=== PATIENT | female | born 1935 | race Caucasian/White ===

== ENCOUNTER 2018-09-13 17:39 | Inpatient (IN) | payer MEDICARE, OTHER ==
[2018-09-13 18:25] LABS: ADD MAN DIFF? NO
[2018-09-13 18:27] LABS: BASOPHIL # 0.1 10^3/ul (0.0-0.1); BASOPHILS % 0.6 % (0.0-2.0); EOSINOPHILS # 0.8 10^3/ul (0.0-0.5); HEMATOCRIT 45.6 % (37.0-47.0); HEMOGLOBIN 14.5 g/dl (12.0-16.0); LYMPHOCYTES # 1.5 10^3/ul (0.8-2.9); MEAN CORPUSCULAR HEMOGLOBIN 28.5 pg (29.0-33.0); MEAN CORPUSCULAR HGB CONC 31.8 g/dl (32.0-37.0); MEAN CORPUSCULAR VOLUME 89.6 fl (82.0-101.0); MEAN PLATELET VOLUME 9.6 fl (7.4-10.4); MONOCYTES % 8.8 % (0.0-11.0); NEUTROPHILS % 69.9 % (39.0-77.0); PLATELET COUNT 357 10^3/UL (140-415); RED BLOOD COUNT 5.09 10^6/ul (4.20-5.40); RED CELL DISTRIBUTION WIDTH 13.2 % (11.5-14.5)
[2018-09-13 18:27] LABS: WHITE BLOOD COUNT 11.5 10^3/ul (4.8-10.8)
[2018-09-13] MEDS: SOD CHLORIDE 0.9% 1,000 ML IV ×3 (18:34→23:32)
[2018-09-13] MEDS: CEFEPIME 2GM/50 ML (PMX) 50 ML IVPB (18:34)
[2018-09-13 18:45] LABS: INR 0.98; PROTIME 13.1 Sec (11.9-14.9)
[2018-09-13 18:46] LABS: PARTIAL THROMBOPLASTIN TIME 30.9 Sec (23.0-35.0)
[2018-09-13 18:48] LABS: ALANINE AMINOTRANSFERASE 10 IU/L (13-69); ALBUMIN 3.3 g/dl (3.3-4.9); ALBUMIN/GLOBULIN RATIO 0.94; ALKALINE PHOSPHATASE 85 IU/L (42-121); ANION GAP 7 (5-13); ASPARTATE AMINO TRANSFERASE 18 IU/L (15-46); BILIRUBIN,INDIRECT 0.8 mg/dl (0-1.1); BILIRUBIN,TOTAL 0.8 mg/dl (0.2-1.3); BLOOD UREA NITROGEN 13 mg/dl (7-20); CALCIUM 9.4 mg/dl (8.4-10.2); CARBON DIOXIDE 32 mmol/L (21-31); CHLORIDE 102 mmol/L (97-110); CREATININE 0.74 mg/dl (0.44-1.00); GLUCOSE 113 mg/dl (70-220); POTASSIUM 3.8 mmol/L (3.5-5.1); SODIUM 141 mmol/L (135-144); TOTAL PROTEIN 6.8 g/dl (6.1-8.1)
[2018-09-13 18:59] LABS: TROPONIN-I < 0.012 ng/ml (0.000-0.120)
[2018-09-13] MEDS: VANCOMYCIN 1 GM (PMX) 250 ML IVPB (19:53)
[2018-09-13 20:29] LABS: ADD UMIC YES; UR ASCORBIC ACID NEGATIVE (NEGATIVE); UR BACTERIA FEW /HPF (NONE SEEN); UR BILIRUBIN (Dip) NEGATIVE (NEGATIVE); UR BLOOD (Dip) 1+ mg/dL (NEGATIVE); UR CLARITY CLEAR (CLEAR); UR COLOR YELLOW (YELLOW); UR GLUCOSE (Dip) NEGATIVE (NEGATIVE); UR KETONES (Dip) TRACE mg/dL (NEGATIVE); UR LEUKOCYTE ESTERASE (Dip) 1+ Leu/ul (NEGATIVE); UR NITRITE (Dip) POSITIVE (NEGATIVE); UR RBC 0 /HPF (0-5); UR SPECIFIC GRAVITY (Dip) 1.012 (1.003-1.030); UR TOTAL PROTEIN (Dip) NEGATIVE (NEGATIVE); UR UROBILINOGEN (Dip) NEGATIVE (NEGATIVE); UR WBC 13 /HPF (0-5)
[2018-09-13] MEDS ORDERED: ONDANSETRON 4 MG INJ IV ×2 (21:30→22:00)
[2018-09-13] MEDS ORDERED: ACETAMINOPHEN 325 MG TAB PO ×2 (21:30→22:00)
[2018-09-13] MEDS ORDERED: VANCOMYCIN IV PER PHARMACY XX (22:00)
[2018-09-13] MEDS ORDERED: BISACODYL (EC) 5 MG TAB PO (22:00)
[2018-09-13] MEDS ORDERED: DOCUSATE SODIUM 100 MG CAP PO (22:00)
[2018-09-13] MEDS ORDERED: NACL 0.9% 3 ML SYG IV (22:00)
[2018-09-14 06:26] LABS: ADD MAN DIFF? NO
[2018-09-14 06:32] LABS: WHITE BLOOD COUNT 8.4 10^3/ul (4.8-10.8)
[2018-09-14 06:32] LABS: BASOPHIL # 0.1 10^3/ul (0.0-0.1); BASOPHILS % 0.7 % (0.0-2.0); EOSINOPHILS # 0.7 10^3/ul (0.0-0.5); EOSINOPHILS % 8.5 % (0.0-7.0); HEMATOCRIT 44.9 % (37.0-47.0); HEMOGLOBIN 13.9 g/dl (12.0-16.0); LYMPHOCYTES # 1.4 10^3/ul (0.8-2.9); LYMPHOCYTES % 16.7 % (15.0-51.0); MEAN CORPUSCULAR HEMOGLOBIN 28.3 pg (29.0-33.0); MEAN CORPUSCULAR VOLUME 91.3 fl (82.0-101.0); MEAN PLATELET VOLUME 9.7 fl (7.4-10.4); MONOCYTE # 0.9 10^3/ul (0.3-0.9); MONOCYTES % 10.1 % (0.0-11.0); NEUTROPHIL # 5.3 10^3/ul (1.6-7.5); NEUTROPHILS % 63.3 % (39.0-77.0); PLATELET COUNT 326 10^3/UL (140-415); RED BLOOD COUNT 4.92 10^6/ul (4.20-5.40); RED CELL DISTRIBUTION WIDTH 13.5 % (11.5-14.5)
[2018-09-14 07:14] LABS: ALANINE AMINOTRANSFERASE 13 IU/L (13-69); ALBUMIN 2.9 g/dl (3.3-4.9); ALBUMIN/GLOBULIN RATIO 0.96; ALKALINE PHOSPHATASE 72 IU/L (42-121); ANION GAP 6 (5-13); ASPARTATE AMINO TRANSFERASE 17 IU/L (15-46); BILIRUBIN,INDIRECT 0.7 mg/dl (0-1.1); BILIRUBIN,TOTAL 0.7 mg/dl (0.2-1.3); BLOOD UREA NITROGEN 10 mg/dl (7-20); CALCIUM 8.7 mg/dl (8.4-10.2); CARBON DIOXIDE 29 mmol/L (21-31); CHLORIDE 107 mmol/L (97-110); CHOL/HDL RATIO 4.2 RATIO; CHOLESTEROL 123 mg/dl (100-200); CREATININE 0.72 mg/dl (0.44-1.00); GLUCOSE 97 mg/dl (70-220); HDL CHOLESTEROL 29 mg/dl (33-92); LDL CHOLESTEROL,CALCULATED 74 mg/dl; MAGNESIUM 1.9 mg/dl (1.7-2.5); POTASSIUM 3.9 mmol/L (3.5-5.1); SODIUM 142 mmol/L (135-144); TOTAL PROTEIN 5.9 g/dl (6.1-8.1); TRIGLYCERIDES 101 mg/dl (0-149)
[2018-09-14 07:46] LABS: HEMOGLOBIN A1C 5.6 % (0-5.9)
[2018-09-14] MEDS: CEFEPIME 1GM/50 ML (PMX) 50 ML IVPB ×2 (09:37→23:25)
[2018-09-14] MEDS: ENOXAPARIN 40 MG/0.4 ML SYG SC (09:56)
[2018-09-14] MEDS: SOD CHLORIDE 0.9% 1,000 ML IV (11:21)
[2018-09-14] MEDS: VANCOMYCIN 1 GM 250 ML IVPB (20:20)
[2018-09-14] MEDS: MIRTAZAPINE 15 MG TAB PO (22:41)
[2018-09-15] MEDS: HALOPERIDOL 5 MG INJ IM (01:36)
[2018-09-15] MEDS: SOD CHLORIDE 0.9% 1,000 ML IV ×2 (05:44→20:18)
[2018-09-15] MEDS: LEVOTHYROXINE 50 MCG TAB PO (06:26)
[2018-09-15] MEDS: CEFEPIME 1GM/50 ML (PMX) 50 ML IVPB ×2 (09:31→22:59)
[2018-09-15] MEDS: ENOXAPARIN 40 MG/0.4 ML SYG SC (09:32)
[2018-09-15] MEDS: VANCOMYCIN 1 GM 250 ML IVPB (20:46)
[2018-09-15] MEDS: MIRTAZAPINE 15 MG TAB PO (21:00)
[2018-09-16] MEDS: SOD CHLORIDE 0.9% 1,000 ML IV ×2 (01:32→16:36)
[2018-09-16] MEDS: LEVOTHYROXINE 50 MCG TAB PO (06:07)
[2018-09-16 06:16] LABS: ADD MAN DIFF? NO
[2018-09-16 06:23] LABS: WHITE BLOOD COUNT 9.5 10^3/ul (4.8-10.8)
[2018-09-16 06:23] LABS: BASOPHIL # 0.1 10^3/ul (0.0-0.1); BASOPHILS % 0.7 % (0.0-2.0); EOSINOPHILS # 0.6 10^3/ul (0.0-0.5); EOSINOPHILS % 5.9 % (0.0-7.0); HEMATOCRIT 51.3 % (37.0-47.0); HEMOGLOBIN 15.9 g/dl (12.0-16.0); LYMPHOCYTES # 1.8 10^3/ul (0.8-2.9); LYMPHOCYTES % 19.2 % (15.0-51.0); MEAN CORPUSCULAR HEMOGLOBIN 28.3 pg (29.0-33.0); MEAN CORPUSCULAR VOLUME 91.4 fl (82.0-101.0); MEAN PLATELET VOLUME 10.4 fl (7.4-10.4); MONOCYTE # 0.8 10^3/ul (0.3-0.9); MONOCYTES % 8.9 % (0.0-11.0); NEUTROPHIL # 6.1 10^3/ul (1.6-7.5); NEUTROPHILS % 64.5 % (39.0-77.0); PLATELET COUNT 347 10^3/UL (140-415); RED BLOOD COUNT 5.61 10^6/ul (4.20-5.40); RED CELL DISTRIBUTION WIDTH 13.5 % (11.5-14.5)
[2018-09-16 06:52] LABS: ANION GAP 13 (5-13); BLOOD UREA NITROGEN 8 mg/dl (7-20); CALCIUM 9.3 mg/dl (8.4-10.2); CARBON DIOXIDE 25 mmol/L (21-31); CHLORIDE 107 mmol/L (97-110); CREATININE 0.73 mg/dl (0.44-1.00); GLUCOSE 86 mg/dl (70-220); POTASSIUM 4.4 mmol/L (3.5-5.1); SODIUM 145 mmol/L (135-144)
[2018-09-16] MEDS: ENOXAPARIN 40 MG/0.4 ML SYG SC (08:48)
[2018-09-16] MEDS: CEFEPIME 1GM/50 ML (PMX) 50 ML IVPB ×2 (08:48→20:27)
[2018-09-16 12:41] LABS: PROCALCITONIN 0.08 ng/mL (0.00-0.10)
[2018-09-16] MEDS: MIRTAZAPINE 15 MG TAB PO (20:26)
[2018-09-17] MEDS: LEVOTHYROXINE 50 MCG TAB PO (06:08)
[2018-09-17] MEDS: SOD CHLORIDE 0.9% 1,000 ML IV ×2 (06:23→20:36)
[2018-09-17 06:44] LABS: ANION GAP 13 (5-13); BLOOD UREA NITROGEN 8 mg/dl (7-20); CALCIUM 8.8 mg/dl (8.4-10.2); CARBON DIOXIDE 20 mmol/L (21-31); CHLORIDE 107 mmol/L (97-110); CREATININE 0.59 mg/dl (0.44-1.00); GLUCOSE 83 mg/dl (70-220); POTASSIUM 3.7 mmol/L (3.5-5.1); SODIUM 140 mmol/L (135-144)
[2018-09-17] MEDS: CEFEPIME 1GM/50 ML (PMX) 50 ML IVPB ×2 (09:54→20:32)
[2018-09-17] MEDS: ENOXAPARIN 40 MG/0.4 ML SYG SC (09:55)
[2018-09-17] MEDS: MIRTAZAPINE 15 MG TAB PO (20:32)
[2018-09-18] MEDS: LEVOTHYROXINE 75 MCG TAB PO (06:24)
[2018-09-18] MEDS: CEFEPIME 1GM/50 ML (PMX) 50 ML IVPB (09:19)
[2018-09-18] MEDS: ENOXAPARIN 40 MG/0.4 ML SYG SC (09:20)
== END 2018-09-18 15:38 | disposition hospice, home (50) | DRG 194 ==
LOC: E/R 17:39 → PP2 09-15 22:52 → TEL 21:31
PROVIDERS: Family Medicine
DX: J18.9 Pneumonia, unspecified organism (principal); G93.40 Encephalopathy, unspecified; N39.0 Urinary tract infection, site not specified; C34.12 Malignant neoplasm of upper lobe, left bronchus or lung; C78.7 Secondary malignant neoplasm of liver and intrahepatic bile duct; C79.51 Secondary malignant neoplasm of bone; Y95 Nosocomial condition; E03.9 Hypothyroidism, unspecified; M81.0 Age-related osteoporosis without current pathological fracture; F03.90 Unspecified dementia, unspecified severity, without behavioral disturbance, psychotic disturbance, mood disturbance, and anxiety; Z66 Do not resuscitate
CPT/HCPCS: 36415; 71045; 71250; 74176; 80048; 80053; 80061; 81001; 83036; 83605; 83735; 84145; 84443; 84484; 85025; 85610; 85730; 87040-91; 87086; 92526; 92610; 93005; 96374; 96375; 99285-25